=== PATIENT | male | born 1990 | race Hispanic/Latino ===

== ENCOUNTER 2017-05-05 07:41 | Emergency (ER) | payer SELFPAY ==
[~2017-05-05] VITALS: Ht 175.3 cm; Wt 113.4 kg
--- NOTE | 2017-05-05 08:21 | Diagnostic Imaging Report ---
PROCEDURE:X-RAY RIGHT ANKLE, COMPLETE TECHNIQUE:AP, lateral and oblique views right ankle INDICATION:Rolled ankle COMPARISON:None. FINDINGS: Right ankle is intact and in anatomic alignment. Normal joint space. Os trigonum. Normal soft tissues. Intact skeleton. CONCLUSION: No acute abnormality. Dictated by: Jamar Stearns M.D. on 05/05/2017 at 8:21 Electronically approved by: Jamar Stearns M.D. on 05/05/2017 at 8:21
[2017-05-05 08:47] VITALS: BP 128/98
== END 2017-05-05 09:11 | disposition home or self-care (01) ==
LOC: ER 07:41
DX: S93.491A Sprain of other ligament of right ankle, initial encounter (principal); S90.01XA Contusion of right ankle, initial encounter; Y92.008 Other place in unspecified non-institutional (private) residence as the place of occurrence of the external cause
CPT/HCPCS: 99283

== ENCOUNTER 2017-08-19 17:41 | Emergency (ER) | payer BC ==
[~2017-08-19] VITALS: Ht 175.3 cm; Wt 113.4 kg
[2017-08-19] MEDS ORDERED: FLUORESCEIN SOD(OPTH) 1 MG STRP ONE (18:31)
[2017-08-19] MEDS ORDERED: TETRACAINE HCL 0.5% OPTH SOLN 4 ML BTL ONE (18:31)
[2017-08-19] MEDS ORDERED: EYE IRRIGATION (OPTH) 120 ML BTL ONE (18:32)
== END 2017-08-19 20:08 | disposition home or self-care (01) ==
LOC: ER 17:41
DX: S01.412A Laceration without foreign body of left cheek and temporomandibular area, initial encounter (principal); X58.XXXA Exposure to other specified factors, initial encounter; Y92.008 Other place in unspecified non-institutional (private) residence as the place of occurrence of the external cause
CPT/HCPCS: 99284

== ENCOUNTER 2019-01-15 18:51 | Emergency (ER) | payer BC ==
[~2019-01-15] VITALS: Ht 175.3 cm; Wt 117.9 kg
[2019-01-15] MEDS ORDERED: IBUPROFEN 400 MG TAB PO ONE (20:30)
--- NOTE | 2019-01-15 21:07 | Diagnostic Imaging Report ---
Exam: Grams/coccyx radiographs-4 views History: Fall. Comparison: None. Findings: No evidence of acute fracture, malalignment, or soft tissue abnormality. Impression: No acute radiographic abnormality. Signed by: Dr. Amairani Shaikh MD on 01/15/2019 9:03 PM
[2019-01-15] MEDS ORDERED: IBUPROFEN 200 MG TAB ONE (21:33)
[2019-01-15 21:55] VITALS: BP 108/66
== END 2019-01-15 22:51 | disposition home or self-care (01) ==
LOC: FSED 18:51
DX: M54.5 Low back pain (principal); M53.3 Sacrococcygeal disorders, not elsewhere classified; W18.30XA Fall on same level, unspecified, initial encounter; Y93.67 Activity, basketball; Y92.310 Basketball court as the place of occurrence of the external cause
CPT/HCPCS: 72220; 99282

== ENCOUNTER 2022-08-01 19:17 | Emergency (ER) | payer OTHER, BC ==
[~2022-08-01] VITALS: Ht 175.3 cm; Wt 113.4 kg
[2022-08-01 19:29] VITALS: O2SAT 97
[2022-08-01] MEDS ORDERED: IBUPROFEN200 MG PO (19:39)
[2022-08-01] MEDS ORDERED: TYLENOL325 MG PO (19:39)
== END 2022-08-01 20:30 | disposition home or self-care (01) ==
LOC: FSED 19:25
DX: S86.811A Strain of other muscle(s) and tendon(s) at lower leg level, right leg, initial encounter (principal); M79.661 Pain in right lower leg; Y93.61 Activity, american tackle football; Y93.02 Activity, running; Y92.321 Football field as the place of occurrence of the external cause
CPT/HCPCS: 99283